=== PATIENT | female | born 1940 | race Caucasian/White ===

== ENCOUNTER 2018-04-26 09:25 | Inpatient (IN) | payer OTHER ==
[~2018-04-26] VITALS: Ht 167.6 cm; Wt 109.2 kg
--- NOTE | ~2018-04-26 | P ---
[facility] [place] [address] PROCEDURE REPORT Name: CHICHINOEMI Nakul Room #: 209-P [facility] IN M.R.#: [id number] Admission: 04/26/18 Attend Phys: Meka Christianson Discharge: Date of : 44 Report #: [id number] THIS REPORT FOR: //name// CC: Meka Moreno PROCEDURE: Pacemaker implantation PREOPERATIVE DIAGNOSIS: Complete heart block. POSTOPERATIVE DIAGNOSIS: Complete heart block. HISTORY: The patient is a 78-year-old female with a history of aortic stenosis, status post mechanical aortic valve as well as permanent atrial fibrillation and atrial flutter who has been having worsening bradycardia over the past 6 months. She presented to the Emergency Room after having 1 month of increased fatigue, shortness of breath and presyncopal symptoms. She was found to be in complete heart block with no AV christina blocking agents on board. She underwent an echocardiogram showing a normal ejection fraction. She is here for a VVI pacemaker implantation. ANESTHESIA: The patient underwent MAC anesthesia with no anesthesia-related complications. DESCRIPTION OF PROCEDURE: The patient underwent informed consent. We discussed the details of the procedure including the risks, which include but not limited to bleeding, infection, stroke, DC, pneumothorax, and cardiac perforation. She understood these risks and is willing to proceed. On the day of the procedure, her INR was 2.8. She was brought to the EP laboratory in a fasting and sedated state and received IV vancomycin for antibiotic prophylaxis. She was prepped and draped in a sterile fashion. They had great difficulties obtaining an IV in her left arm, but eventually one was obtained in her hand and a venogram showed patency of the left axillary vein. I then injected lidocaine below the level of left clavicle. Incision was made and a pocket was created over the prepectoral fascia. Access to the left axillary vein was achieved using the extrathoracic approach and a sheath was positioned using the modified Seldinger technique. Of note, the patient did have significant tricuspid regurgitation, which made lead position somewhat challenging. I had positioned the lead at approximately 3 or 4 different locations. I initially tried placing this close to the His bundle region, but the lead would not stay in this position, placement nearer to the distal septum revealed low R waves. I therefore placed the lead into the higher mid ventricular septum with adequate pacing and sensing thresholds. The leads were sutured to the prepectoral fascia and the new device was connected to the lead. The pocket was irrigated with vancomycin and the pocket was closed in 3 layers using 2-0 for the deep layer, 3-0 for the mid layer, 4-0 for the subcuticular layer. Surgical glue was placed to the outer skin layer. The patient awoke neurologically and hemodynamically intact. No complications and [address] [address] PROCEDURE REPORT Name: NOEMI CADET Room #: 209-P [facility] IN M.R.#: [id number] Admission: 04/26/18 Attend Phys: Meka Christianson Discharge: Date of : 44 Report #: [id number] no significant bleeding. The implanted pacemaker was a [employer] model # [id number], serial #[id number] with a [employer] RV lead model #2088TC, 58 cm, serial #[id number]. The lead demonstrated an R-wave of 6.4 millivolts, pacing impedance of 440 ohms and a pacing threshold of 0.5 volts at 0.4 milliseconds. The device was programmed to the VVIR 60-120 mode. CONCLUSIONS: 1. Successful VVI pacemaker implantation. 2. Satisfactory right ventricular pacing and sensing thresholds. By: 1524 2240 Lan Saenz MD /nt
[~2018-04-26 09:25] MED LIST: AMITRIPTYLINE H25 M2 PO; ASPIR 8181 MG PO; BENAZEPRIL-HCT1 EA10 PO; COUMADIN 1MG TAB1 M1 PO; CRESTOR40 MG PO; K-DUR10 MEQ PO; METOPROLOL TART25 MG PO; SYNTHROID75 MCG PO
[2018-04-26 09:26] VITALS: BP 160/42
[2018-04-26 09:57] LABS: ABSOLUTE NEUTROPHILS 4.1 thou/uL (1.4-8.2); BASOPHILS 0.7 % (0.0-2.0); EOSINOPHILS 1.2 % (0.0-3.0); HEMATOCRIT 35.5 % (37.0-47.0); HEMOGLOBIN 12.1 gm/dL (12.0-15.0); LYMPHOCYTES 25.8 % (24.0-44.0); MCH 32.4 pg (26.0-34.0); MCHC 34.2 g/dL (28.0-37.0); MCV 94.8 fL (80.0-100.0); MONOCYTES 9.7 % (1.0-8.0); PLATELET COUNT 185 thou/uL (150-400); POLYS 62.6 % (36.0-66.0); RBC 3.75 mil/uL (4.20-5.00); RDW 13.9 % (10.5-14.5); WBC 6.5 thou/uL (4.0-11.0)
[2018-04-26 10:02] LABS: ANION GAP 10 mmol/L (7-16); BUN 34 mg/dL (7-18); CALCIUM 10.2 mg/dL (8.5-10.1); CHLORIDE 101 mmol/L (98-107); CO2 26 mmol/L (21-32); CREATININE 1.4 mg/dL (0.6-1.0); GLUCOSE 112 mg/dL (74-106); POTASSIUM 3.6 mmol/L (3.5-5.1); SODIUM 137 mmol/L (136-145)
[2018-04-26 10:08] LABS: INR 4.2; PROTIME 43.5 Seconds (9.3-11.4)
[2018-04-26 10:11] LABS: ALBUMIN 3.9 g/dL (3.4-5.0); SGOT 71 U/L (15-37); SGPT 73 U/L (30-65); TOTAL BILIRUBIN 1.5 mg/dL (<0.1-1.0); TOTAL PROTEIN 7.8 g/dL (6.4-8.2); TROPONIN-I <0.06 ng/mL (<0.06)
[2018-04-26 10:43] VITALS: BP 129/49
[2018-04-26 11:17] LABS: CHOLESTEROL 160 mg/dL (<200); HDL CHOLESTEROL 64 mg/dL (>40); LDL CHOLESTEROL 69 mg/dL (<100); TC:HDL 2.5 Ratio (Not establshd); TRIGLYCERIDE 135 mg/dL (<150); VLDL 27 mg/dL (<40)
--- NOTE | 2018-04-26 14:01 | 2DMMODE ---
[facility] [place] [address] 2 D/M-MODE ECHOCARDIOGRAM Name: CHICHINOEMI C Room #: 170-11 ADM IN [facility].#: [id number] Admission: 04/26/18 Attend Phys: Meka De Jesus Discharge: Date of : 44 Date of Service: 04/26/18 1400 Report #: [id number] THIS REPORT FOR: //name// APPROVED REPORT Study performed: 04/26/2018 11:52:19 EXAM: Comprehensive 2D, Doppler, and color-flow Echocardiogram with contrast Patient Location: ER Status: routine BSA: 2.12 BP: 135/48 mmHg Rhythm: Atrial Fibrillation Other Information Study Quality: Adequate Indications Hypotension Atrial Fibrillation Dizziness and Vertigo Bradycardia Dyspnea CAD Palpitations hyperlipidemia, Hx. CABG, [employer]. Darrian mechanical Aortic Valve Echo Enhancing Agent Indication: Endocardial border delineation Agent(s) / Amount(s) Used: Optison 10 cc 2D Dimensions RVDd: 38.35 mm IVSd: 12.20 (7-11mm) LVOT Diam: 17.25 (18-24mm) LVDd: 46.48 mm PWd: 12.12 (7-11mm) Ascending Ao: 28.32 (22-36mm) LVDs: 33.01 (25-40mm) IVC: 25.00 mm Volumes Left Atrial Volume (Systole) Single Plane 4CH: 77.93 mL Single Plane 2CH: 73.97 mL LA ESV Index: 40.21 mL/m2 [facility] [address] [address] 2 D/M-MODE ECHOCARDIOGRAM Name: NOEMI CADET Room #: 170-[facility] IN ..#: [id number] Admission: 04/26/18 Attend Phys: Meka De Jesus Discharge: Date of : 44 Date of Service: 04/26/18 1400 Report #: [id number] Aortic Valve AoV Peak Adam.: 2.82 m/s AO Peak Gr.: 31.83 mmHg LVOT Max P.90 mmHg AO Mean Gr.: 17.61 mmHg LVOT Mean P.05 mmHg AO V2 Mean: 2.02 m/s LVOT Max V: 1.47 m/s AO V2 VTI: 66.99 cm LVOT Mean V: 0.93 m/s RICH (VTI): 1.27 cm2 LVOT V1 VTI: 36.54 cm RICH Vmax: 1.22 cm2 SV (LVOT): 85.35 mL Mitral Valve E/A Ratio: 1.9 MV Decel. Time: 230.82 ms MV E Max Adam.: 1.81 m/s MV A Adam.: 0.95 m/s MV PHT: 66.94 ms IVRT: 65.74 ms Pulmonary Valve PV Peak Adam.: 1.37 m/s PV Peak Gr.: 7.58 mmHg Tricuspid Valve TR Peak Adam.: 3.69 m/s RAP Estimate: 10.00 mmHg TR Peak Gr.: 54.45 mmHg PA Pressure: 65.00 mmHg Left Ventricle The left ventricle is normal size. Mild concentric left ventricular hypertrophy. The left ventricular systolic function is normal. The left ventricular ejection fraction is within the normal range. LVEF is 55-60%. The left ventricular diastolic function is normal. Right Ventricle The right ventricle is normal size. The right ventricular systolic function is normal. Atria Left atrium is mildly dilated. Right atrium is mildly dilated. Aortic Valve Mechanical Aortic valve with mean PG of 16.72 and max PG of 17.61.1.2cm2 rich No aortic regurgitation is present. [facility] [address] [place] [address] 2 D/M-MODE ECHOCARDIOGRAM Name: NOEMI CADET Room #: 170-11 [facility] IN ..#: [id number] Admission: 04/26/18 Attend Phys: Meka De Jesus Discharge: Date of : 44 Date of Service: 04/26/18 1400 Report #: [id number] Mitral Valve There is mitral annular calcification. Mild mitral regurgitation. No evidence of mitral valve stenosis. Tricuspid Valve The tricuspid valve is normal in structure. Moderate tricuspid regurgitation. Estimated PAP of 65 mmHg. Pulmonic Valve Pulmonic valve is not well visualized. There is no pulmonic valvular regurgitation. Great Vessels The ascending aorta is normal in size. IVC is dilated and collapses >50% with inspiration. Pericardium There is no pericardial effusion. <Conclusion> The left ventricle is normal size. Mild concentric left ventricular hypertrophy. LVEF is 55-60%. The left ventricular diastolic function is normal. The right ventricle is normal size. Left atrium is mildly dilated. Right atrium is mildly dilated. Mechanical Aortic valve with mean PG of 16.72 and max PG of 17.61.1.2cm2 rich Mild mitral regurgitation. There is mitral annular calcification. Mild mitral regurgitation. Moderate tricuspid regurgitation. Estimated PAP of 65 mmHg. There is no pericardial effusion. <ELECTRONICALLY SIGNED> By: Dominik Cordero MD, FACC 04/26/18 1400 1400 1400 Dominik Cordero MD, FACC /INF
[2018-04-26 15:32] VITALS: BP 100/59
[2018-04-26 16:29] LABS: PROTIME 48.1 Seconds (9.3-11.4)
[2018-04-26 16:32] LABS: INR 4.7
--- NOTE | 2018-04-26 16:49 | EKG ---
[place] [address] [facility] [employer] [place] [address] ELECTROCARDIOGRAM REPORT Name: CHICHINOEMI C Room #: 209-P [facility] IN M.R.#: [id number] Admission: 04/26/18 Attend Phys: Meka Christianson Discharge: Date of : 44 Report #: [id number] THIS REPORT FOR: //name// [facility] ED Test Date: 2018-04-26 Test Time: 09:44:38 Pat Name: NOEMI CADET Department: Room: 209 Gender: F Candle Molder: MANISHA : 1940 Requested By: Enedelia Rivera Order Number: [id number] MD: Willie Velarde Measurements Intervals [place] Rate: 34 P: NE: QRS: 8 QRSD: 106 T: 124 QT: 490 QTc: 369 Interpretive Statements Atrial flutter Ventricular premature complex Early R-wave progression Compared to ECG 11/30/2017 15:00:04 Ventricular premature complex(es) now present Right bundle-branch block no longer present Electronically Signed On 04-26-2018 16:49:37 ADVERTISING STRATEGIST by Willie Velarde [email or web address] <ELECTRONICALLY SIGNED> By: Willie Velarde MD, [facility] 04/26/18 1649 0944 0944 Willie Velarde MD, [facility] /EPI
--- NOTE | 2018-04-26 16:57 | EKG ---
[address] [place] [address] ELECTROCARDIOGRAM REPORT Name: NOEMI CADET Room #: 209- ADM IN M.R.#: [id number] Admission: 04/26/18 Attend Phys: Meka Christianson Discharge: Date of : 44 Report #: [id number] THIS REPORT FOR: //name// [facility] Test Date: 2018-04-26 Test Time: 16:40:54 Pat Name: NOEMI CADET Department: Room: 209 Gender: F Nurse Coordinator: Micheline ESPINOSA : 1940 Requested By: Lan Saenz Order Number: [id number] MD: Willie Velarde Measurements Intervals [place] Rate: 41 P: FL: QRS: 9 QRSD: 173 T: 9 QT: 591 QTc: 489 Interpretive Statements Atrial flutter Occasional premature ventricular complexes Possible septal infarct, age indeterminate Compared to ECG 11/30/2017 15:00:04 Septal Q waves are now present Electronically Signed On 04-26-2018 16:57:25 FITTING ROOM SUPERVISOR by Willie Velarde [email or web address] <ELECTRONICALLY SIGNED> By: Willie Velarde MD, [facility] 04/26/18 1887 1640 1640 Willie Velarde MD, [facility] /EPI
--- NOTE | 2018-04-26 16:57 | NUR ---
PATIENT ADMITTED TO CCU THIS AFTERNOON. ALERT AND ORIENTED, BRADYCARDIC IN THE 30'S AND PHYSICIANS AWARE AND WILL REVERSE INR TONIGHT AND POSSIBLY PUT PACEMAKER TOMORROW. PATIENT ON BEDREST. OTHER VITALS STABLE. ADMISSION ASSESSMENT AND HISTORY OBTAINED FROM PATIENT. WILL CONTINUE TO MONITOR CLOSELY.
[2018-04-26 19:53] VITALS: BP 187/45
[2018-04-27 00:30] VITALS: BP 117/47
[2018-04-27 04:34] LABS: PROTIME 28.8 Seconds (9.3-11.4)
[2018-04-27 04:43] LABS: INR 2.8
[2018-04-27 04:50] VITALS: BP 144/54
--- NOTE | 2018-04-27 06:36 | NUR ---
ASSUMED CARE OF PATIENT AROUND 1900. PT'S HEART RATE IN 30-40s MOST OF SHIFT, OCCASIONAL DIPS INTO 20s. PT STATES SHE FEELS NAUSEOUS W/ LOWER HEART RATE, ZOFRAN OFFERED, PT DECLINED. CRACKERS AND SPRITE GIVEN, PATIENT REPORTS RELIEF. PT ON BEDREST, UP TO BSC ONLY. CONSENTS SIGNED FOR PROCEDURE, CHECKLIST COMPLETED. PATIENT NPO AT MIDNIGHT. CHANGE IN INR NOTED. PATIENT IS PROGRESSING TOWARD GOALS, WILL CONTINUE TO MONITOR.
[2018-04-27 07:13] VITALS: BP 133/46
--- NOTE | 2018-04-27 12:29 | 2DMMODE ---
[facility] [place] [address] 2 D/M-MODE ECHOCARDIOGRAM Name: NOEMI CADET Room #: 209-P [facility] IN ..#: [id number] Admission: 04/26/18 Attend Phys: Meka De Jesus Discharge: Date of : 44 Date of Service: 04/27/18 1228 Report #: [id number] THIS REPORT FOR: //name// APPROVED REPORT Study performed: 04/27/2018 11:52:21 EXAM: Limited 2D Echocardiogram Patient Location: Bedside/PACU Status: stat BSA: 2.16 Other Information Study Quality: Adequate Indications stat ECHO to rule out effusion, status post pacemaker Left Ventricle The left ventricular systolic function is normal. The left ventricular ejection fraction is within the normal range. Right Ventricle The right ventricular systolic function is normal. Atria Left atrium is dilated. Right atrium is dilated. Mitral Valve Moderate nidia annular calcification Pericardium There is no pericardial effusion. <Conclusion> Limited and abbreviated echocardiogram The left ventricular systolic function is normal. There is no pericardial effusion. <ELECTRONICALLY SIGNED> By: Willie Velarde MD, [facility] 04/27/18 1228 1228 1228 Willie Velarde MD, FACC /INF
[2018-04-27 12:30] VITALS: BP 121/57
[2018-04-27 16:14] VITALS: BP 131/48
--- NOTE | 2018-04-27 18:38 | NUR ---
VSS REMAINS 100% V PACED AFTER VVI PACER INSERTION TODAY, RATE 60. PT IN HOLDING AREA TODAY WENT INTO PUL EDEMA. IV LASIX GIVEN AND PT IS DIEURESING WELL FROM LASIX. OUTPUT 3200 FROM [employer]. LUNGS UPON ARRIVAL FROM HOLDING AREA WERE COURSE CRAKLES BUT BREATHE SOUNDSS ARE NOW FINE CRAKLES BASES AND PT BREATHING MUCH MORE COMFORTABLY ON O2 AT 3L, SAT IS 94%. L CHEST PACER SITE INTACT, SL BRUISING. WILL CONTINUE TO MONITER AND CARE FOR PT PER PLAN OF CARE
[2018-04-27 20:11] VITALS: BP 143/49
[2018-04-28 00:06] VITALS: BP 111/40
[2018-04-28 04:20] LABS: INR 1.5; PROTIME 15.6 Seconds (9.3-11.4)
[2018-04-28 04:26] LABS: ALBUMIN 3.1 g/dL (3.4-5.0); CALCIUM 9.6 mg/dL (8.5-10.1); CREATININE 1.3 mg/dL (0.6-1.0); PHOSPHORUS 2.9 mg/dL (2.5-4.9)
[2018-04-28 04:49] LABS: POTASSIUM 2.9 mmol/L (3.5-5.1)
[2018-04-28 04:53] VITALS: BP 147/40
[2018-04-28 08:15] VITALS: BP 149/46
[2018-04-28 12:19] VITALS: BP 138/47
[2018-04-28 15:57] VITALS: BP 112/44
--- NOTE | 2018-04-28 16:50 | NUR ---
ASSESSMENT CHARTED - MEDS PER MAY - PT GIVEN K+ TODAY DUE TO LOW LAB OF 2.9 RECHECK AT 1500 K+ NOW 3.8. PT STARTED ON LASIX 40IV BID. PT GIVEN HYDROCODONE FOR CO OF PAIN IN COCYX AREA - PATIENT STATES THAT SHE FEELS LIKE THE BED HAS A METAL BAR THROUGH IT AND IT HAS AGGRIVATED HE AREA - PAIN MED WITH GOOD RELIEF. PT HAS BEEN UP IN THE CHIAR - AMBUALTED IN THE HALLS WITH PHYS THERAPY. UP IN ROOM WITH STBY ASSIST. JOSE DIET AND FLUIDS. NO CO'S OF NAUSEA. PT WITH CRACKLES IN BASES THIS AM - CLEARED AFTER LASIX PT WITH 2 L OF OUTPUT THIS SHIFT. NO CO'S AT THE PRESENT TIME.
[2018-04-28 20:11] VITALS: BP 148/61
[2018-04-29] VITALS (7 sets, daily range): BP systolic 119–139; BP diastolic 41–60
[2018-04-29 03:22] LABS: ALBUMIN 3.1 g/dL (3.4-5.0); CALCIUM 9.6 mg/dL (8.5-10.1); CREATININE 1.2 mg/dL (0.6-1.0); PHOSPHORUS 3.2 mg/dL (2.5-4.9); POTASSIUM 3.7 mmol/L (3.5-5.1)
[2018-04-29 03:35] LABS: INR 1.7; PROTIME 17.7 Seconds (9.3-11.4)
--- NOTE | 2018-04-29 04:42 | NUR ---
ASSESSMENT DOCUMENTED.PT BEEN RESTING IN NO ACUTE DISTRESS.A/OX4.VSS.PAIN MEDS GIVEN FOR BACK PAIN WITH RELIEF.LEFT CHEST PACEMAKER INCISION INTACT W/O S/SX OF INFECTION.PATRICIO GAFFNEY.PT DENIES ANY NEEDS AT THIS TIME.WILL CONT TO MONITOR PER POC.POSSIBLE DISCHARGE TODAY OR TOMORROW.
--- NOTE | 2018-04-29 12:17 | NUR ---
Case opened to follow for dc planning. Head Of Marketing visited with the pt at bedside. She is a&ox4 and lives indep in an apt. She is feeling better today but did have some dizziness with gait. She is being seen by therapy. Pt weaned off o2 today. She will likely be homebound at dc and need to coordinate transport to medical appts with her dtr. HH f/u is recommended and she is agreeable. She denies use of a previous agency or a preference. [facility] alerted to possible referral and dc is anticipated for tomorrow. Will follow.
--- NOTE | 2018-04-29 17:55 | NUR ---
ASSESSMENT CHARTED. VSS. PT ALERT AND ORIENTED. EVALUATED BY PHYSICAL THERAPIST. WINNED OFF O2. SAT ABOVE 90'S ON RA. CURRY CATHETER D/C. VOIDS OK. NO CONCERNS AT THIS TIME. PROGRESSING WELL TOWARD DISCHARGE GOAL.
[2018-04-30 04:45] VITALS: BP 157/49
--- NOTE | 2018-04-30 05:00 | NUR ---
Assumed pt care at 1900 with no sign of distress noted in pt. Pt is alert and oriented with no sign of distress noted in pt. Assessment charted. VSS are stable. Scheduled med administered to patient and pt tolerated PO intake. Pain medication administered to pt. Pt is stable. Denies any further needs at this time.
[2018-04-30 05:02] LABS: PROTIME 28.3 Seconds (9.3-11.4)
[2018-04-30 05:10] LABS: CALCIUM 9.5 mg/dL (8.5-10.1); CREATININE 1.1 mg/dL (0.6-1.0); POTASSIUM 3.6 mmol/L (3.5-5.1)
[2018-04-30 05:12] LABS: INR 2.7
[2018-04-30 08:05] VITALS: BP 138/56
[2018-04-30 09:41] VITALS: BP 119/46
--- NOTE | 2018-04-30 09:44 | NUR ---
PT. DISCHARGING TODAY TO HOME WITH [facility]. NOTIFIED VAN IN ADM. THAT PT. DISCHARGING TODAY AND DC ORDERS ARE DONE. SHE WILL NOTIFY PT. OF TIME OF VISITS.
[2018-04-30] MEDS ORDERED: COUMADIN 1MG TAB1 M1 PO (09:58)
[2018-04-30] MEDS ORDERED: MINOCYCLINE 5050 M1 PO (09:58)
[2018-04-30] MEDS ORDERED: COUMADIN 2 MG TA2 M1 PO (09:58)
--- NOTE | 2018-04-30 12:41 | NUR ---
ASSESSMENT DOCUMENTED.PT ALERT AND ORIENTED. PACEMAKER SURGICAL INCISION C/D/I WITH DEMABOND. VSS. SEEN BY DR. THAYER. ORDERS GIVEN TO DISCHARGE PT TO HOME WITH HOME HEALTH. DISCHARGE INSTRUCTIONS GIVEN TO PT. PT VERBERLIZE UNDERSTANDING. PT IN HER ROOM AT THIS TIME. WAITING FOR HER DAUGHTER.
== END 2018-04-30 13:47 | disposition home health service (06) | DRG 242 ==
LOC: ER 09:25 → EROBS 10:40 → 2N 10:40 → ENTRNSPT 04-30 13:29 → EDTRNSPTSTS 04-30 13:32 → 2N 04-30 13:47
PROVIDERS: Nurse Practitioner; Physician Assistant; ADMIT Hospitalist
DX: I44.2 Atrioventricular block, complete (principal); N17.0 Acute kidney failure with tubular necrosis; I50.30 Unspecified diastolic (congestive) heart failure; I49.5 Sick sinus syndrome; I48.92 Unspecified atrial flutter; Z96.652 Presence of left artificial knee joint; I34.0 Nonrheumatic mitral (valve) insufficiency; G89.29 Other chronic pain; I48.2 Chronic atrial fibrillation; M54.9 Dorsalgia, unspecified; E87.6 Hypokalemia; I11.0 Hypertensive heart disease with heart failure; I25.10 Atherosclerotic heart disease of native coronary artery without angina pectoris; E78.5 Hyperlipidemia, unspecified; M19.90 Unspecified osteoarthritis, unspecified site; Z90.49 Acquired absence of other specified parts of digestive tract; Z90.710 Acquired absence of both cervix and uterus; Z95.2 Presence of prosthetic heart valve; Z95.1 Presence of aortocoronary bypass graft; Z79.82 Long term (current) use of aspirin; Z79.01 Long term (current) use of anticoagulants; Z79.899 Other long term (current) drug therapy; Z91.048 Other nonmedicinal substance allergy status; Z82.49 Family history of ischemic heart disease and other diseases of the circulatory system
CPT/HCPCS: 10081; 62110; 62900; 70005

== ENCOUNTER 2018-07-12 10:33 | Inpatient (IN) | payer OTHER ==
[~2018-07-12] VITALS: Ht 167.6 cm; Wt 109.4 kg
[2018-07-12] VITALS (8 sets, daily range): BP systolic 162–205; BP diastolic 54–77
[~2018-07-12 10:33] MED LIST changes: +COUMADIN 2 MG TA2 M1 PO; +MINOCYCLINE 5050 M1 PO
[2018-07-12 11:05] LABS: ABSOLUTE NEUTROPHILS 4.3 thou/uL (1.4-8.2); BASOPHILS 0.8 % (0.0-2.0); EOSINOPHILS 0.8 % (0.0-3.0); HEMATOCRIT 33.6 % (37.0-47.0); HEMOGLOBIN 11.7 gm/dL (12.0-15.0); MCH 32.9 pg (26.0-34.0); MCHC 34.7 g/dL (28.0-37.0); MCV 94.8 fL (80.0-100.0); MONOCYTES 9.9 % (1.0-8.0); PLATELET COUNT 207 thou/uL (150-400); POLYS 64.5 % (36.0-66.0); RBC 3.55 mil/uL (4.20-5.00); RDW 13.5 % (10.5-14.5); WBC 6.7 thou/uL (4.0-11.0)
[2018-07-12] MEDS ORDERED: COUMADIN 1MG TAB1 M1 PO (11:05)
[2018-07-12 11:18] LABS: ANION GAP 9 mmol/L (7-16); BUN 17 mg/dL (7-18); CALCIUM 9.6 mg/dL (8.5-10.1); CHLORIDE 103 mmol/L (98-107); CO2 28 mmol/L (21-32); CREATININE 0.9 mg/dL (0.6-1.0); GLUCOSE 120 mg/dL (74-106); SODIUM 140 mmol/L (136-145)
[2018-07-12 11:19] LABS: POTASSIUM 4.4 mmol/L (3.5-5.1)
[2018-07-12 11:27] LABS: TROPONIN-I <0.06 ng/mL (<0.06)
--- NOTE | 2018-07-12 12:47 | NUR ---
PT UP TO BATHROOM. PT HAS STEADY GAIT.
[2018-07-12] MEDS ORDERED: TYLENOL EXTRA500 MG PO (13:14)
[2018-07-12] MEDS ORDERED: HGH PO (13:15)
--- NOTE | 2018-07-12 14:13 | EKG ---
[address] [place] [address] ELECTROCARDIOGRAM REPORT Name: NOEMI CADET Room #: 170-11 ADM IN M.R.#: [id number] ������������������ Admission: 07/12/18 ������������������ Attend Phys: Meka Christianson Discharge: ������������������ Date of : 44 Report #: [id number] ����������������������������������������������������������������� [id number] THIS REPORT FOR: //name// [facility] ED Test Date: 2018-07-12 Test Time: 10:47:49 Pat Name: NOEMI CADET Department: Room: 170 Gender: F Fire Sprinkler Inspector: INEZ : 1940 Requested By: Christiano Camarillo Order Number: [id number] MD: Lan Saenz Measurements Intervals [place] Rate: 63 P: 95 MN: 226 QRS: 0 QRSD: 167 T: 71 QT: 474 QTc: 486 Interpretive Statements Atrial flutter. Right bundle branch block LVH with secondary repolarization abnormality Electronically Signed On 07-12-2018 14:13:43 CDT by Lan Saenz [email or web address] ��������������������������������������������� <ELECTRONICALLY SIGNED> ���������������������������������������� By: Lan Saenz MD ��������������������������������������������� 07/12/18 1413 1047 1047 MD KRISTI Kenyon
--- NOTE | 2018-07-12 17:20 | NUR ---
PT TO THE UNIT FROM THE ER WITH CHEST PAIN. NO CO'S OF CHEST PAIN SINCE ARRIVAL TO THE UNIT - PT UP AD PARISH IN ROOM - JOSE DIET AND FLUIDS WITH NO CO'S OF NASUEA. BP ELEVATED - IMAGING SPECIALIST NOTIFIED - PRN HYDRALAZINE ORDERED. PT ORINETED TO ROOM AND BEDSPACE - NO CO'S AT THE PRESENT TIME.
[2018-07-13] VITALS (10 sets, daily range): BP systolic 84–172; BP diastolic 44–65
--- NOTE | 2018-07-13 03:42 | NUR ---
VSS. VPACE BBB AVB. ASSESSMENT CHARTED. PT DENIES CP, SOA, N/V. C/O HEADACHE, PRN TYLENOL PER EMAR. BP ELEVATED, SCHEDULED BP MEDS PER EMAR. SLEEPING WELL THROUGHOUT THE NIGHT. PLAN FOR AM LABS. WILL CONTINUE TO MONITOR AND WITH POC.
[2018-07-13 04:14] LABS: INR 2.5; PROTIME 26.4 Seconds (9.3-11.4)
[2018-07-13 04:25] LABS: CHOLESTEROL 160 mg/dL (<200); HDL CHOLESTEROL 59 mg/dL (>40); LDL CHOLESTEROL 72 mg/dL (<100); TC:HDL 2.7 Ratio (Not establshd); TRIGLYCERIDE 147 mg/dL (<150); TROPONIN-I <0.06 ng/mL (<0.06); VLDL 29 mg/dL (<40)
[2018-07-13 04:35] LABS: SERUM ASSESSMENT Clear
--- NOTE | 2018-07-13 19:42 | NUR ---
ASSUMED CARE OF PT AT 0700. PT A&OX4, UP AD PARISH. PT BLOOD PRESSURE LOW IN AM AND SLIGHTLY HIGH IN AFTERNOON. PT HAD PART ONE OF 2 STRESS TEST COMPLETED TODAY. PT UP AD PARISH, PLEASANT AND DENIES PAIN OR DISCOMFORT. WILL CONT WITH POC.
[2018-07-14 01:59] VITALS: BP 146/65
[2018-07-14 04:25] VITALS: BP 127/52
[2018-07-14 07:37] VITALS: BP 150/67
[2018-07-14 07:43] LABS: CALCIUM 10.2 mg/dL (8.5-10.1); POTASSIUM 3.9 mmol/L (3.5-5.1)
--- NOTE | 2018-07-14 09:04 | D ---
[facility] [place] [address] DISCHARGE SUMMARY Name: NOEMI CADET Nakul Room #: 214-P ADM IN M.R.#: [id number] Admission: 07/12/18 ������������������ Attend Phys: Meka Christianson Discharge: ������������������ Date of : 44 Report #: [id number] THIS REPORT FOR: //name// CC: Meka Moreno DATE OF SERVICE: 07/13/2018 FINAL DIAGNOSES: 1. Unstable angina status post coronary intervention. 2. Prior history of coronary artery disease. 3. Chronic obstructive pulmonary disease, on oxygen. 4. Sarcoidosis. 5. Hypercholesterolemia. 6. Diabetes mellitus. 7. Chronic tobacco use. 8. Hypertension. 9. Gastroesophageal reflux disease. 10. Edema. HOSPITAL COURSE: Please see the original H and P for full details. The patient presented with chest pains and dyspnea. She was found to have an abnormal nuclear stress test with evidence for ischemia in the inferolateral distribution. Please see the cardiac catheterization report for full details. The stent in the first obtuse marginal artery was patent. The LAD had mild disease. The stent in the right posterolateral branch was patent. After the stent, the RPL branch tapers down to a small caliber vessel with severe stenosis at the distal segment and medical therapy is recommended. In the mid/distal RCA, there was a severe occlusion, 80%. Angioplasty was performed with placement of a drug-eluting stent at this location. She remained stable overnight. She will continue with the medications. Please see the MAR for full listing. From a cardiac standpoint, she will continue with aspirin 81 mg daily, Lipitor 20 mg daily, Coreg 12.5 mg b.i.d., lisinopril as directed, Ranexa 1000 mg b.i.d. and new medication, Plavix 75 mg daily. She will be scheduled for followup in a few weeks. ��������������������������������������������� <ELECTRONICALLY SIGNED> ���������������������������������������� By: Delvin Hancock MD ��������������������������������������������� 07/14/18 0904 0942 1220 Delvin Hancock MD /nt
[2018-07-14 11:08] VITALS: BP 150/67
[2018-07-14 11:13] VITALS: BP 150/67
== END 2018-07-14 11:24 | disposition home or self-care (01) | DRG 303 ==
LOC: ER 10:33 → EROBS 12:26 → 2N 12:26
PROVIDERS: Emergency Medicine; Nurse Practitioner; Nurse Practitioner Acute Care; ADMIT Hospitalist
DX: I25.110 Atherosclerotic heart disease of native coronary artery with unstable angina pectoris (principal); I48.92 Unspecified atrial flutter; Z96.653 Presence of artificial knee joint, bilateral; E78.5 Hyperlipidemia, unspecified; E03.9 Hypothyroidism, unspecified; I48.91 Unspecified atrial fibrillation; Z66 Do not resuscitate; J44.9 Chronic obstructive pulmonary disease, unspecified; D86.9 Sarcoidosis, unspecified; E78.00 Pure hypercholesterolemia, unspecified; K21.9 Gastro-esophageal reflux disease without esophagitis; I10 Essential (primary) hypertension; E11.9 Type 2 diabetes mellitus without complications; I35.0 Nonrheumatic aortic (valve) stenosis; I49.5 Sick sinus syndrome; Z60.2 Problems related to living alone; Z95.0 Presence of cardiac pacemaker; Z90.710 Acquired absence of both cervix and uterus; Z90.49 Acquired absence of other specified parts of digestive tract; Z95.1 Presence of aortocoronary bypass graft; Z82.49 Family history of ischemic heart disease and other diseases of the circulatory system; Z79.82 Long term (current) use of aspirin; Z79.899 Other long term (current) drug therapy; Z95.2 Presence of prosthetic heart valve
CPT/HCPCS: 10081

== ENCOUNTER → 2019-07-21 | Outpatient (CLI) | payer OTHER ==
[~2019-07-21] MED LIST changes: +HGH PO; +TYLENOL EXTRA500 MG PO
== END ==
LOC: SJCVC 11:39
DX: I25.119 Atherosclerotic heart disease of native coronary artery with unspecified angina pectoris (principal); I48.92 Unspecified atrial flutter; I10 Essential (primary) hypertension; Z95.0 Presence of cardiac pacemaker; E78.00 Pure hypercholesterolemia, unspecified; M19.90 Unspecified osteoarthritis, unspecified site; Z79.82 Long term (current) use of aspirin; Z79.899 Other long term (current) drug therapy; Z82.49 Family history of ischemic heart disease and other diseases of the circulatory system

== ENCOUNTER → 2019-08-02 | Outpatient (CLI) | payer OTHER | LOC: SJCVC 14:23 | DX: Z45.018 Encounter for adjustment and management of other part of cardiac pacemaker (principal); I48.21 Permanent atrial fibrillation; R00.1 Bradycardia, unspecified; I44.2 Atrioventricular block, complete; I35.0 Nonrheumatic aortic (valve) stenosis; I10 Essential (primary) hypertension; E78.5 Hyperlipidemia, unspecified; M19.90 Unspecified osteoarthritis, unspecified site; Z79.82 Long term (current) use of aspirin; Z79.899 Other long term (current) drug therapy; Z95.1 Presence of aortocoronary bypass graft; Z82.49 Family history of ischemic heart disease and other diseases of the circulatory system ==